=== PATIENT | female | born 1950 | race Asian ===

== ENCOUNTER 2018-01-23 17:08 | Inpatient (IN) | payer OTHER, MEDICARE ==
[~2018-01-23] VITALS: Ht 157.5 cm; Wt 41.7 kg
--- NOTE | 2018-01-23 17:15 | NUR ---
Pt placed in bed 8
[2018-01-23 17:17] VITALS: BP_SYST 162
--- NOTE | 2018-01-23 17:30 | NUR ---
ER at bedside examining patient.
--- NOTE | 2018-01-23 17:40 | NUR ---
PATIENT SITTING UP ON GURNEY. AA&Ox4. RESPIRATIONS EVEN AND UNLABORED. DENIES OF ANY CHEST PAIN, SOB, VOMITING, DIARRHEA, DIZZINESS, HEADACHE, AND FEVERS. PT WITH C/O INTERMITTENT, ACHING, MID ABDOMINAL PAIN x1 MONTH. PT'S UMBILICAL AREA NOTED WITH A SMALL, DRY, REDDENED MASS. ABDOMEN TENDER UPON PALPATION. PAIN = 4/10; TOLERABLE VERBALIZED. NO OBJECTIVE S/SX OF PAIN OBSERVED. REST AND RELAXATION ENCOURAGED. WILL CONTINUE TO MONITOR.
[2018-01-23 17:47] LABS: BILIRUBIN,URINE NEGATIVE (NEGATIVE); BLOOD, URINE NEGATIVE (NEGATIVE); CLARITY/URINE CLEAR (CLEAR); COLOR,URINE YELLOW (YELLOW); GLUCOSE,URINE NEGATIVE (NEGATIVE); KETONES,URINE 1+ (NEGATIVE); LEUKOCYTE ESTERASE ,URINE NEGATIVE (NEGATIVE); NITRITE, URINE NEGATIVE (NEGATIVE); PROTEIN URINE 1+ (NEGATIVE); UROBILINOGEN,URINE 0.2 (0.2-1.0)
--- NOTE | 2018-01-23 17:50 | NUR ---
Consent for CT w/ contrast obtained from pt.
[2018-01-23 17:56] LABS: BACTERIA,URINE FEW /HPF (None Seen); RBC,URINE 0-3 /HPF (0-3); WBC,URINE 0-3 /HPF (0-3)
[2018-01-23 17:57] LABS: CALCIUM OXALATE CRYSTALS,UR 0-10 /HPF (None Seen); MUCUS,URINE None Seen /LPF (None Seen); YEAST,URINE None Seen /HPF (None Seen)
[2018-01-23 18:00] LABS: BASOPHILS # (AUTO) 0.1 K/uL (0.0-0.2); BASOPHILS % (AUTO) 0.7 % (0.0-2.0); MEAN CORPUSCULAR HEMOGLOBIN 29 pg (27-31); MEAN CORPUSCULAR HGB CONC 32 % (32-36); MONOCYTES # (AUTO) 0.3 K/uL (0.0-1.0); NEUTROPHILS % (AUTO) 84.9 % (40.0-70.0)
[2018-01-23 18:02] LABS: EOSINOPHILS % (AUTO) 0.4 % (0.0-4.0); HEMATOCRIT 41.5 % (36-48); HEMOGLOBIN 13.1 g/dL (12.0-16.0); LYMPHOCYTES # (AUTO) 0.8 K/uL (1.0-5.5); LYMPHOCYTES % (AUTO) 10.5 % (20.5-51.5); MEAN CORPUSCULAR VOLUME 92 fL (79.0-98.0); MONOCYTES % (AUTO) 3.5 % (1.7-9.3); NEUTROPHILS # (AUTO) 6.9 K/uL (1.8-7.7); PLATELET COUNT (AUTO) 229 K/uL (130-430); RED BLOOD CELL COUNT(AUTO) 4.51 MIL/uL (4.2-6.2); RED CELL DISTRIBUTION WIDTH 11.8 % (9.0-15.0); WHITE BLOOD COUNT (AUTO) 8.1 K/uL (4.8-10.8)
[2018-01-23] MEDS ORDERED: IOHEXOL 100 ML IV ONE (18:06)
--- NOTE | 2018-01-23 18:07 | NUR ---
Patient transported to radiology via GURNEY, IN GOOD CONDITION,accompanied by RADIOLOGY STAFF.
[2018-01-23 18:09] LABS: CALCIUM 11.4 mg/dL (8.4-11.0); CREATININE 0.63 mg/dL (0.55-1.30); POTASSIUM 4.1 mmol/L (3.5-5.1)
[2018-01-23 18:13] LABS: ALBUMIN 4.1 g/dL (3.4-4.8); TOTAL BILIRUBIN 0.5 mg/dL (0.0-1.0)
--- NOTE | 2018-01-23 18:21 | NUR ---
Returned from radiology, VIA [facility]. PT IN GOOD CONDITION. AWAITING LAB RESULTS.
[2018-01-23] MEDS ORDERED: ALEN70TA3 PO (18:42)
[2018-01-23] MEDS ORDERED: METO25TA3 PO (18:42)
[2018-01-23] MEDS ORDERED: LISI1TAB11 PO (18:42)
[2018-01-23] MEDS ORDERED: CALC-823 PO (18:48)
[2018-01-23] MEDS ORDERED: MULT-1159 PO (18:48)
[2018-01-23] MEDS ORDERED: CHOL200075 PO (18:53)
[2018-01-23] MEDS ORDERED: ONDANSETRON HCL 4 MG/2 ML VIAL IVP PRN (19:00)
[2018-01-23] MEDS ORDERED: MORPHINE 4 MG/ML INJ. SYRINGE IVP PRN (19:00)
--- NOTE | 2018-01-23 19:00 | NUR ---
Patient will be admitted to care of DR. WOOD. Admitted to MED-SURG unit. Will go to room 101A. Belongings list completed. Summary report printed. Report will be given at bedside. Addendum: 01/23/18 at 1920 by SDEDOJ PATIENT IN GOOD CONDITION. PAIN = 5/10; TOLERABLE VERBALIZED.
--- NOTE | 2018-01-23 19:15 | NUR ---
Admission Note Received patient from ER with diagnosis of Abdominal Pain. Initial Plan of Care discussed-patient verbalized understanding. Patient's at bedside. Oriented to room, call light, pain management and safety.
[2018-01-23 19:33] VITALS: BP_SYST 162
[2018-01-23] MEDS: NACL 0.9% 1,000 ML IV SCH (20:41)
--- NOTE | 2018-01-23 21:05 | NUR ---
CT ABDOMEN TRIPLE PHASE Per radiology dept Dr. Marsh ordered CT abdomen triple phase with contrast but patient already given contrast in ER and cannot give any more for tonight. Procedure have to do it tomorrow. Will notify Dr. Marsh.
--- NOTE | 2018-01-23 21:30 | NUR ---
ROUND Patient resting in the bed with eyes closed. No acute distress. IV intact to RAC, no redness, no swelling, on NS at 100ml/hr, infusing well. Safety measure maintained. Bed locked in low position, side rails up, bed alarm on. Call light within reached. Continue to monitor.
--- NOTE | 2018-01-23 22:48 | NUR ---
paged paged doctor Adonis Marsh
--- NOTE | 2018-01-23 23:20 | NUR ---
2ND PAGED PAGED NINA JOHNSON FOR ORDERS.
--- NOTE | 2018-01-24 00:27 | NUR ---
Consultation called Reason for consultation: Abdominal Pain/Abdominal Mass Was consult called: Y Person who was notified: Nat Consulting Physician: Dr. Ge Sales Advisory Manager Ordering Physician: Dr. Marsh
[2018-01-24 00:34] VITALS: BP_SYST 145
--- NOTE | 2018-01-24 01:00 | NUR ---
ROUND Patient resting in the bed with eyes closed. No acute distress. Respiration even and unlabored. IV intact to RAC, no redness, no swelling, on NS at 100ml/hr, infusing well. Safety measure maintained. Call light within reached. Bed locked in low position, side rails up, bed alarm on. Continue to monitor.
--- NOTE | 2018-01-24 02:55 | NUR ---
ROUND Patient resting in the bed with eyes closed. No acute distress. Respiration even and unlabored. IV intact to RAC, no redness, no swelling, on NS at 100ml/hr, infusing well. Safety measure maintained. Bed locked in low position, side rails up, bed alarm on. Call light within reached. Continue to monitor.
--- NOTE | 2018-01-24 04:35 | NUR ---
ROUND Patient resting in the bed with eyes closed. No acute distress. IV intact to RAC, no redness, no swelling, on NS at 100ml/hr, infusing well. Safety measure maintained. Call light within reached. Bed locked in low position, side rails up, bed alarm on. Continue to monitor.
[2018-01-24] MEDS: NACL 0.9% 1,000 ML IV SCH ×3 (06:18→18:02)
--- NOTE | 2018-01-24 06:35 | NUR ---
CLOSING NOTE Patient resting in the bed comfortable. No acute distress. Respiration even and unlabored. IV intact to RAC, no redness, no swelling, on NS at 100ml/hr, infusing well. Assisted to bathroom as needed. All needs met. Hourly rounding during shift. Safety measure maintained. Call light within reached. Bed locked in low position, side rails up, bed alarm on. Will endorse to morning shift nurse.
--- NOTE | 2018-01-24 07:25 | NUR ---
INITIAL NOTE RECEIVED PATIENT FROM INFORMATION ASSURANCE ANALYST NURSE, PATIENT IN STABLE CONDITION, NO SIGNS OF DISTRESS NOTED, BREATHING IS EVEN AND UNLABORED, PATIENT HAS IV IN RIGHT FOREARM WITH IV FLUIDS RUNNING, NO SIGNS OF INFILTRATION NOTED AT THIS TIME, INSTRUCTED PATIENT TO USE CALL GUILLAUME IF ASSISTANCE IS NEEDED, PATIENT VERBALIZED UNDERSTANDING, CALL GUILLAUME WITHIN REACH, BED IN LOWEST POSITION, SIDE RAILS UP, WILL CONTINUE TO MONITOR.
[2018-01-24 07:30] VITALS: BP_SYST 157
[2018-01-24] MEDS ORDERED: ALENDRONATE SODIUM 70 MG TABLET (FOSAMAX) PO SCH (08:00)
--- NOTE | 2018-01-24 08:41 | NUR ---
PATIENT OFF UNIT FOR GI PROCEDURE PATIENT IN STABLE CONDITION
[2018-01-24] MEDS ORDERED: MEPERIDINE HCL/PF 100 MG/ML AMP ONE (08:55)
[2018-01-24] MEDS ORDERED: MIDAZOLAM HCL 5 MG/5 ML VIAL ONE (08:55)
[2018-01-24] MEDS ORDERED: SIMETHICONE 40 MG/0.6 ML ML ONE (08:56)
--- NOTE | 2018-01-24 09:52 | NUR ---
Client back on unit from procedure Client in stable condition, egd completed dx gastritis
[2018-01-24] MEDS: PANTOPRAZOLE SODIUM 40 MG/VIAL (PROTONIX) IVP SCH (10:16)
[2018-01-24] MEDS: CALCIUM CARBONATE/VITAMIN D3 1 TAB TABLET PO SCH (10:16)
[2018-01-24] MEDS: METOPROLOL SUCCINATE 25 MG TAB.SR.24H (TOPROL XL) PO SCH (10:17)
--- NOTE | 2018-01-24 10:27 | NUR ---
Medications patient given morning medications, medications given at this time due to patient being npo for procedure, no other needs at this time, call san within reach, bed in lowest position, fall precautions in place, will continue to monitor.
--- NOTE | 2018-01-24 12:24 | NUR ---
RN ROUNDS PATIENT CURRENTLY EATING LUNCH, NO SIGNS OF DISTRESS NOTED, BREATHING EVEN AND UNLABORED, CALL GUILLAUME WITHIN REACH, WILL CONTINUE TO MONITOR.
[2018-01-24] MEDS ORDERED: IOHEXOL 100 ML IV ONE (13:16)
--- NOTE | 2018-01-24 14:32 | NUR ---
RN ROUNDS PATIENT IN STABLE CONDITION, NO COMPLAINTS OF PAIN OR DISCOMFORT AT THIS TIME, CALL GUILLAUME WITHIN REACH, WILL CONTINUE TO MONITOR.
[2018-01-24 14:53] LABS: CALCIUM 9.4 mg/dL (8.4-11.0); CREATININE 0.68 mg/dL (0.55-1.30); POTASSIUM 3.8 mmol/L (3.5-5.1)
[2018-01-24 14:54] LABS: EOSINOPHILS % (AUTO) 0.5 % (0.0-4.0); HEMATOCRIT 41.3 % (36-48); HEMOGLOBIN 13.3 g/dL (12.0-16.0); LYMPHOCYTES # (AUTO) 0.8 K/uL (1.0-5.5); LYMPHOCYTES % (AUTO) 11.3 % (20.5-51.5); MEAN CORPUSCULAR HEMOGLOBIN 30 pg (27-31); MEAN CORPUSCULAR HGB CONC 32 % (32-36); MEAN CORPUSCULAR VOLUME 92 fL (79.0-98.0); MONOCYTES # (AUTO) 0.4 K/uL (0.0-1.0); MONOCYTES % (AUTO) 5.2 % (1.7-9.3); NEUTROPHILS # (AUTO) 5.7 K/uL (1.8-7.7); PLATELET COUNT (AUTO) 225 K/uL (130-430); RED BLOOD CELL COUNT(AUTO) 4.47 MIL/uL (4.2-6.2); RED CELL DISTRIBUTION WIDTH 11.5 % (9.0-15.0); WHITE BLOOD COUNT (AUTO) 6.9 K/uL (4.8-10.8)
[2018-01-24 14:58] LABS: ALBUMIN 3.3 g/dL (3.4-4.8); TOTAL BILIRUBIN 0.6 mg/dL (0.0-1.0)
[2018-01-24 16:28] VITALS: BP_SYST 156
--- NOTE | 2018-01-24 16:30 | NUR ---
RN ROUNDS PATIENT IN STABLE CONDITION, NO SIGNS OF DISTRESS NOTED AT THIS TIME, PATIENT IN STABLE CONDITION. WILL CONTINUE TO MONITOR.
--- NOTE | 2018-01-24 18:47 | NUR ---
CLOSING NOTE WILL ENDORSE PATIENT TO CARRIAGE DOGGER NURSE, ALL NEEDS MET, NO COMPLAINTS OF PAIN AT THIS TIME, CALL GUILLAUME WITHIN REACH, BED IN LOWEST POSITION, SIDE RAILS UP. FALL PRECAUTIONS IN PLACE.
--- NOTE | 2018-01-24 19:47 | NUR ---
OPENING NOTES Pt and endorsement received from morning shift nurse. Pt is AAOx4, lying in bed. No complains of pain, nausea and vomiting. Pt is on IVF NS at 100ml/hr on right AC G20. No signs of acute distress noted. Encouraged to use call light when needed. Pt refused to turn bed alarm on and educated on safety precautions, pt states that she ambulates okay and will call the nurse when she needs anything. Bed at its lowest level. Will continue to monitor.
[2018-01-24 21:17] VITALS: BP_SYST 135
--- NOTE | 2018-01-24 23:47 | NUR ---
RESTING Pt is resting in bed with both eyes closed. With visible chest rise and fall noted. No signs of acute distress or SOB noted. Call light with pt and bed at its lowest level. Will continue to monitor.
[2018-01-25] MEDS: NACL 0.9% 1,000 ML IV SCH (02:12)
[2018-01-25] MEDS: ACETAMINOPHEN 325 MG TABLET PO PRN (02:22)
--- NOTE | 2018-01-25 02:22 | NUR ---
PAIN MED/TYLENOL 650MG GIVEN Pt complained of abdominal pain with a scale of 3/10. Encouraged deep breathing exercises and position of comfort. Tylenol 650mg PO given as ordered. Pt asked for snacks, crackers and sandwich was given. Safety precautions in place with 2 side rails up, bed at its lowest and call light with pt.Will continue to monitor.
--- NOTE | 2018-01-25 06:50 | NUR ---
CLOSING NOTES Pt is resting in bed with both eyes closed. With visible chest rise and fall noted. No signs of acute distress noted. Call light with pt and bed at its lowest level. All needs attended throughout the shift. Will endorse to day shift nurse.
[2018-01-25 07:11] LABS: CALCIUM 8.8 mg/dL (8.4-11.0); CREATININE 0.63 mg/dL (0.55-1.30); POTASSIUM 3.2 mmol/L (3.5-5.1)
[2018-01-25 07:20] LABS: ALBUMIN 2.8 g/dL (3.4-4.8); TOTAL BILIRUBIN 0.4 mg/dL (0.0-1.0)
--- NOTE | 2018-01-25 07:30 | NUR ---
OPENING NOTE At initial assessment, patient is awake, alert and oriented x4. Denies any pain at this time. Breathing even and unlabored, patient on room air. IV site on the RAC 20G patent and intact, NS infusing at 100 ml/hr. Safety and fall precautions in place, bed is in lowest position and locked, bed alarm on, side rails up x2, call light within reach, will continue to monitor.
[2018-01-25 08:15] VITALS: BP_SYST 166
[2018-01-25] MEDS: PANTOPRAZOLE SODIUM 40 MG/VIAL (PROTONIX) IVP SCH (08:35)
[2018-01-25] MEDS: METOPROLOL SUCCINATE 25 MG TAB.SR.24H (TOPROL XL) PO SCH (08:35)
[2018-01-25] MEDS: CALCIUM CARBONATE/VITAMIN D3 1 TAB TABLET PO SCH (08:35)
[2018-01-25] MEDS ORDERED: POTASSIUM CHLORIDE 10 MEQ TAB.PRT.SR PO ONE (10:00)
--- NOTE | 2018-01-25 10:16 | NUR ---
CONSULTATION PAGED/CALLED Reason for Consultation: [] LIVER MASS Person Who was Notified: [] Consulting Physician: [] DR NDIAYE FIXER SUPERVISOR FOR DR MCNALLY Disease Education Specialist Specialty: [] ONCO/SAMMIE Ordering Physician: [] DR Adonis WOOD Addendum: 01/25/18 at 1025 by Sintia Anderson [place]/ PERSON WHO WAS NOTIFIED: SPOKE TO SAIRA
[2018-01-25] MEDS ORDERED: IOHEXOL 100 ML IV ONE (11:50)
[2018-01-25 12:01] LABS: INR 1.1 (0.8-1.2); PROTHROMBIN TIME 11.5 SECS (9.5-12.5)
[2018-01-25 12:12] LABS: CEA 1.2 ng/mL (0.0-4.7)
--- NOTE | 2018-01-25 12:50 | NUR ---
RN ROUNDS Patient is awake, alert and oriented x4, denies any pain at this time. No respiratory distress noted. AM meds tolerated well. Safety and fall precautions in place. Will continue to monitor.
--- NOTE | 2018-01-25 13:40 | NUR ---
PAGED/SPOKE TO MD Dr. Butler, on-call MD for Dr. Randhawa, paged regarding the CT liver biopsy. Dr. Butler called back and informed him regarding the CT liver biopsy to be done on Saturday, and Dr. Butler is okay with it.
--- NOTE | 2018-01-25 14:38 | NUR ---
Dietitian Recommendations * Recommend regular, soft diet w/ Ensure Enlive BID (oral supplement provides an additional 700 kcal/day and 40 gm protein/day) LP, RD Please refer to Nutrition Assessment for details.
--- NOTE | 2018-01-25 14:43 | NUR ---
RN ROUNDS Patient is resting with eyes closed, no c/o pain at this time. Breathing even and unlabored. Safety and fall precautions in place, call light within reach.
[2018-01-25 15:32] VITALS: BP_SYST 161
--- NOTE | 2018-01-25 16:55 | NUR ---
RN ROUNDS Patient is awake, stable, denies any pain at this time. Safety and fall precautions in place. Call light within reach.
--- NOTE | 2018-01-25 19:00 | NUR ---
CLOSING NOTE Patient is awake, alert and oriented x4, denies any pain at this time. No respiratory distress. IV site patent and intact, no s/s of infection or infiltration. Safety and fall precautions in place, bed is in lowest position and locked, side rails up x2, call light within reach. All needs met and anticipated throughout the shift, will endorse plan of care.
--- NOTE | 2018-01-25 19:27 | NUR ---
OPENING NOTES: Pt and endorsement received from day shift nurse. Pt is AAOx4, lying in bed while reading. No complains of pain and no signs of acute distress or SOB noted. Encouraged to use call light when needed. Pt refused bed alarm and was educated on safety precautions. Call light with pt and bed at its lowest level. Will continue to monitor.
[2018-01-25 21:34] VITALS: BP_SYST 138
--- NOTE | 2018-01-25 23:00 | NUR ---
RESTING Pt is resting in bed with both eyes closed. With visible chest rise and fall noted. No signs of any acute distress or complains of pain at this time. Call light with pt, 3 side rails up and bed at its lowest level. Will continue to monitor.
[2018-01-26 00:19] VITALS: BP_SYST 144
--- NOTE | 2018-01-26 02:23 | NUR ---
RESTING Pt is resting in bed with both eyes closed. With visible chest rise and fall noted. No signs of any acute distress or SOB. Call light with pt, 3 side rails up and bed at its lowest level. Will continue to monitor.
--- NOTE | 2018-01-26 06:41 | NUR ---
CLOSING Pt is resting in bed with both eyes closed. With visible chest rise and fall with non labored breathing noted. No complains of pain and no signs of acute distress noted. All needs attended throughout the shift. Safety precautions in place with bed at its lowest level and 2 side rails up. Call light with pt. Will endorse to days shift nurse.
--- NOTE | 2018-01-26 07:30 | NUR ---
OPENING NOTE Patient is awake, alert and oriented x4, denies any pain at this time. Breathing even and unlabored, patient on room air. IV site on the RAC 20G patent and intact, saline locked. Safety and fall precautions in place, bed in lowest position and locked, bed alarm on, side rails up x2, call light within reach, will continue to monitor.
[2018-01-26 08:17] VITALS: BP_SYST 165
[2018-01-26] MEDS: CALCIUM CARBONATE/VITAMIN D3 1 TAB TABLET PO SCH (08:20)
[2018-01-26] MEDS: PANTOPRAZOLE SODIUM 40 MG/VIAL (PROTONIX) IVP SCH (08:21)
[2018-01-26] MEDS: METOPROLOL SUCCINATE 25 MG TAB.SR.24H (TOPROL XL) PO SCH (08:21)
--- NOTE | 2018-01-26 12:12 | NUR ---
RN ROUNDS Patient is awake, stable, denies any pain or discomfort. No needs at this time. Call light within reach, will continue to monitor.
[2018-01-26 12:16] VITALS: BP_SYST 132
[2018-01-26 16:02] VITALS: BP_SYST 146
--- NOTE | 2018-01-26 16:12 | NUR ---
RN ROUNDS Patient is awake, stable. Denies any pain at this time. Call light within reach, will continue to monitor.
--- NOTE | 2018-01-26 18:30 | NUR ---
CLOSING NOTE Patient is awake, in stable condition, denies any pain/discomfort at this time. Breathing even and unlabored. Denies any pain/discomfort at this time. IV site patent and intact, no s/s of infection. Safety and fall precautions in place, bed is in lowest position and locked, side rails up x2, call light within reach. All needs met and anticipated throughout the shift, will endorse plan of care.
--- NOTE | 2018-01-26 19:18 | NUR ---
OPENING NOTES Pt and endorsement received from day shift nurse. Pt is AAOx4, lying in bed. Denies any pain at this time. No signs of acute distress noted. Encouraged to use call light when needed. Pt refused bed alarm and was educated on safety precautions. Call light with pt and bed at its lowest level. Will continue to monitor.
[2018-01-26 21:14] VITALS: BP_SYST 146
[2018-01-27 00:22] VITALS: BP_SYST 154
--- NOTE | 2018-01-27 00:30 | NUR ---
RESTING Pt is resting in bed with both eyes closed. With visible chest rise and fall with unlabored breathing noted. No signs of any acute distress noted. Call light with pt and bed at its lowest level. Will continue to monitor.
--- NOTE | 2018-01-27 04:00 | NUR ---
RESTING Pt is resting in bed with both eyes closed. With visible chest rise and fall noted. No signs of any acute distress or SOB noted. Call light with pt and bed at its lowest level. Will continue to monitor.
--- NOTE | 2018-01-27 07:00 | NUR ---
CLOSING NOTES Pt is resting in bed with both eyes closed. With visible chest rise and fall with unlabored breathing noted. No complains of pain throughout the shift. All needs attended. Safety precautions maintained and call light with pt. Will endorse to day shift nurse.
[2018-01-27 08:00] VITALS: BP_SYST 162
--- NOTE | 2018-01-27 08:00 | NUR ---
Opening Note/refuse bed alarm received report from music supervisor RN, pt resting in bed, A&Ox4, respirations even and unlabored on room air, pt denies any pain, no acute distress noted, IV site clean, dry, and intact, pt educated on use of call light and asked to call for assistance, pt verbalized understanding, call light in reach, pt educated on use of bed alarm for pt safety, pt refusing bed alarm, bed in low and locked position, fall and aspiration precautions in place.
[2018-01-27] MEDS: METOPROLOL SUCCINATE 25 MG TAB.SR.24H (TOPROL XL) PO SCH (08:29)
[2018-01-27] MEDS: PANTOPRAZOLE SODIUM 40 MG/VIAL (PROTONIX) IVP SCH (08:30)
[2018-01-27] MEDS: CALCIUM CARBONATE/VITAMIN D3 1 TAB TABLET PO SCH (08:30)
--- NOTE | 2018-01-27 08:35 | NUR ---
Medication called radiology, okay for pt to have medication with small sip of water, pt educated on medication use and side effects, pt verbalized understanding, pt tolerated medication administration well, no acute distress noted, pt educated on use and side effects of os-jez, pt refusing os-jez, fall and aspiration precautions in place.
[2018-01-27] MEDS ORDERED: LIDOCAINE 1%, 20 ML MDV 20 ML ONE (09:24)
--- NOTE | 2018-01-27 09:30 | NUR ---
to CT pt stable, no acute distress noted, pt taken to CT via wheelchair.
--- NOTE | 2018-01-27 10:26 | NUR ---
back from CT pt back from CT, resting in bed, no acute distress noted, fall and aspiration precautions in place. Addendum: 01/27/18 at 1042 by Lili Savage RN add: band aid to medial upper abdomen, clean, dry, and intact, no bleeding noted, BP 151/90, HR 75, O2Sat 96%, temp 97.6, respirations 17.
--- NOTE | 2018-01-27 10:41 | NUR ---
Pain Management/Medication pt complaint of pain 9/10 to upper abdomen, pt educated on use and side effects of PRN morphine, pt verbalized understanding, tolerated medication administration well, no acute distress noted, fall and aspiration precautions in place.
[2018-01-27 11:08] VITALS: BP_SYST 136
[2018-01-27 11:17] LABS: HEPATITIS A AB, IgM Negative (Negative); HEPATITIS B CORE AB, IgM Negative (Negative); HEPATITIS B SURFACE AG Negative (Negative)
--- NOTE | 2018-01-27 11:45 | NUR ---
RN Rounds pt resting in bed, reports pain control is effective, no acute distress noted, fall and aspiration precautions in place.
--- NOTE | 2018-01-27 13:45 | NUR ---
Bathroom pt ambulated to bathroom, steady gait noted, no assistance required, pt voided x1, pt ambulated back to bed, no additional needs at this time, fall and aspiration precautions in place.
[2018-01-27] MEDS: ACETAMINOPHEN 325 MG TABLET PO PRN ×2 (15:47→21:25)
--- NOTE | 2018-01-27 15:48 | NUR ---
Pain Management/Medication pt complaint of pain 3/10 to abdomen, pt educated on use and side effects of PRN tylenol, pt verbalized understanding, tolerated medication administration well, no acute distress noted, fall and aspiration precautions in place.
[2018-01-27 16:47] VITALS: BP_SYST 148
--- NOTE | 2018-01-27 17:22 | NUR ---
RN Rounds pt sleeping in bed, respirations even and unlabored on room air, no acute distress noted, fall and aspiration precautions in place.
--- NOTE | 2018-01-27 19:25 | NUR ---
Closing Note pt resting in bed, A&Ox4, respirations even and unlabored on room air, pt reports pain is controlled at this time, band-aid to medial upper abdomen intact, no bleeding noted, no acute distress noted, pt educated on use of call light and asked to call for assistance, pt verbalized understanding, call light in reach, pt educated on use of bed alarm for pt safety, pt refusing bed alarm, bed in low and locked position, fall and aspiration precautions in place, care endorsed to Mayra RN.
--- NOTE | 2018-01-27 19:30 | NUR ---
Initial Notes Received handoff report from offgoing nurse at the bedside. Patient is awake and alert, resting comfortably in bed. No SOB, no acute distress, no complaints of pain at this time. Bed is locked, in the lowest position, 2x side rails up. Patient refuses bed alarm at this time. Call light is within reach. Explained plan of care to the patient. Patient verbalized understanding.
[2018-01-27 20:00] VITALS: BP_SYST 137
--- NOTE | 2018-01-27 21:25 | NUR ---
Patient is complaining of mild abdominal pain. Provided Tylenol PRN per MD order, see eMAR for details.
--- NOTE | 2018-01-27 22:32 | NUR ---
Patient is resting comfortably in bed with eyes closed. No SOB, no acute distress, no signs of pain or facial grimacing noted. Breathing is even and unlabored with visible chest rise and fall noted. Bed is locked, in the lowest position, 2x side rails up. Call light is within reach.
[2018-01-28 00:28] VITALS: BP_SYST 137
--- NOTE | 2018-01-28 00:32 | NUR ---
Patient is resting comfortably in bed with eyes closed. No SOB, no acute distress, no signs of pain or facial grimacing at this time. Breathing is even and unlabored with visible chest rise and fall noted. Bed is locked, in the lowest position, 2x side rails up. Call light is within reach.
--- NOTE | 2018-01-28 03:38 | NUR ---
Patient is resting comfortably in bed. No SOB, no acute distress, no signs of pain or facial grimacing at this time. Breathing is even and unlabored. Call light is within reach.
--- NOTE | 2018-01-28 05:47 | NUR ---
Patient is resting comfortably in bed, awake and alert. No SOB, no acute distress, no complaints of pain at this time. Bed is locked, in the lowest position, 2x side rails up. Call light is within reach. Encouraged patient to call. Provided nourishment per patient request, apple juice and orange juice.
--- NOTE | 2018-01-28 07:15 | NUR ---
Closing Notes Patient is resting comfortably in bed, awake and alert. No SOB, no acute distress, no complaints of pain at this time. IV site is intact, dressing clean and dry, saline locked. Bed is locked, placed in the lowest position, 2x side rails up. Patient refuses bed alarm at this time. Call light is within reach. Fall and safety precautions maintained. All needs have been met during this shift. Handoff report given to oncoming dayshift nurse at the bedside.
[2018-01-28 08:00] VITALS: BP_SYST 151
--- NOTE | 2018-01-28 08:00 | NUR ---
Opening Note/refuse bed alarm received report from hourly shift manager RN, pt resting in bed, A&Ox4, respirations even and unlabored on room air, pt reports pain is controlled, no acute distress noted, IV site clean, dry, and intact, pt educated on use of call light and asked to call for assistance, pt verbalized understanding, call light in reach, pt educted on use of bed alarm for pt safety, pt refusing bed alarm, bed in low and locked position, fall and aspiration precautions in place.
[2018-01-28] MEDS: PANTOPRAZOLE SODIUM 40 MG/VIAL (PROTONIX) IVP SCH (08:07)
[2018-01-28] MEDS: CALCIUM CARBONATE/VITAMIN D3 1 TAB TABLET PO SCH (08:07)
[2018-01-28] MEDS: METOPROLOL SUCCINATE 25 MG TAB.SR.24H (TOPROL XL) PO SCH (08:07)
--- NOTE | 2018-01-28 08:13 | NUR ---
Medication pt educated on medication use and side effects, pt verbalized understanding, tolerated medication administration well, no acute distress noted, fall and aspiration precautions in place.
[2018-01-28] MEDS ORDERED: PRO40 PO (09:16)
[2018-01-28 09:20] VITALS: BP_SYST 151
--- NOTE | 2018-01-28 09:30 | NUR ---
Ambulating pt seen ambulating in cook, steady gait noted, pt tolerating well.
--- NOTE | 2018-01-28 10:50 | NUR ---
Discharge pt provided with discharge packet and instructions, written prescription for protonix provided, pt instructed to follow up with Dr. Randhawa in one week, pt verbalized understanding, IV catheter removed, catheter intact, no bleeding, hospital ID band removed, pt stable, no acute distress noted, no bleeding noted from liver biopsy site, pts accompanying for discharge, all belongings sent with pt, pt taken to parking lot via wheelchair.
[2018-01-28 14:54] LABS: CARBOHYDRATE AG 19-9 49 U/mL (0-35)
--- NOTE | 2018-01-31 13:48 | NUR ---
Discharge Follow Up Phone Call HAMMER HEATER phoned patient, , and left a voicemail on 01/30/18. HAMMER HEATER phoned and spoke with patient today. Patient stated she was doing okay. Her pain medicine is managing her pain. She filled her protonix prescription. She has a follow up appointment scheduled with oncologist, Dr Randhawa on 02/07/18 (rescheduled from 01/31/18). No questions or concerns.
== END 2018-01-28 10:55 | disposition home or self-care (01) | DRG 436 ==
LOC: SED 17:08 → SMU 18:49
PROVIDERS: ADMIT Internal Medicine; ATTEND Internal Medicine
PROC: 0DB68ZX Excision of Stomach, Via Natural or Artificial Opening Endoscopic, Diagnostic (ICD-10-PCS; principal; 2018-01-24 09:45)
PROC: 0FB23ZX Excision of Left Lobe Liver, Percutaneous Approach, Diagnostic (ICD-10-PCS; 2018-01-27)
DX: C78.7 Secondary malignant neoplasm of liver and intrahepatic bile duct (principal); E46 Unspecified protein-calorie malnutrition; Z68.1 Body mass index [BMI] 19.9 or less, adult; K76.9 Liver disease, unspecified; K29.70 Gastritis, unspecified, without bleeding; I10 Essential (primary) hypertension; R16.0 Hepatomegaly, not elsewhere classified; M19.90 Unspecified osteoarthritis, unspecified site; M81.0 Age-related osteoporosis without current pathological fracture; Z79.899 Other long term (current) drug therapy
CPT/HCPCS: 36415; 43239; 47000; 71260-TC; 74170-TC; 80053; 80074; 81000-TC; 82105; 82378; 83690-TC; 85025; 85610-TC; 85730-TC; 86301; 87081; 88305; 88307; 88312; 88313; 88341; 88342; 99285; C9113; J2001; J2175; J2250; J2270; J7030; Q9967

== ENCOUNTER 2018-04-07 09:40 | Inpatient (IN) | payer OTHER, MEDICARE ==
[~2018-04-07] VITALS: Ht 157.5 cm; Wt 39.0 kg
[~2018-04-07 09:40] MED LIST: ALEN70TA3 PO; CALC-823 PO; CHOL200075 PO; LISI1TAB11 PO; METO25TA3 PO; MULT-1159 PO; PRO40 PO
[2018-04-07 09:53] VITALS: BP_SYST 156
[2018-04-07] MEDS ORDERED: NACL 0.9% 1,000 ML IV ONE (10:19)
[2018-04-07] MEDS ORDERED: ONDANSETRON HCL 4 MG/2 ML VIAL IVP ONE (10:45)
[2018-04-07 11:25] LABS: BASOPHILS % (AUTO) 0.3 % (0.0-2.0); EOSINOPHILS % (AUTO) 0.1 % (0.0-4.0); HEMATOCRIT 40.8 % (36-48); HEMOGLOBIN 13.4 g/dL (12.0-16.0); LYMPHOCYTES # (AUTO) 0.6 K/uL (1.0-5.5); LYMPHOCYTES % (AUTO) 11.4 % (20.5-51.5); MEAN CORPUSCULAR HEMOGLOBIN 29 pg (27-31); MEAN CORPUSCULAR HGB CONC 33 % (32-36); MEAN CORPUSCULAR VOLUME 87 fL (79.0-98.0); MONOCYTES # (AUTO) 0.2 K/uL (0.0-1.0); MONOCYTES % (AUTO) 2.9 % (1.7-9.3); NEUTROPHILS # (AUTO) 4.8 K/uL (1.8-7.7); NEUTROPHILS % (AUTO) 85.3 % (40.0-70.0); PLATELET COUNT (AUTO) 234 K/uL (130-430); RED BLOOD CELL COUNT(AUTO) 4.68 MIL/uL (4.2-6.2); RED CELL DISTRIBUTION WIDTH 12.8 % (9.0-15.0); WHITE BLOOD COUNT (AUTO) 5.6 K/uL (4.8-10.8)
[2018-04-07 11:43] LABS: CALCIUM 10.2 mg/dL (8.4-11.0); CREATININE 0.64 mg/dL (0.55-1.30); POTASSIUM 4.2 mmol/L (3.5-5.1)
[2018-04-07 11:48] LABS: INR 1.1 (0.8-1.2)
[2018-04-07 11:49] LABS: ALBUMIN 2.8 g/dL (3.4-4.8); TOTAL BILIRUBIN 0.5 mg/dL (0.0-1.0)
[2018-04-07 14:31] VITALS: BP_SYST 146
[2018-04-07] MEDS: D5NS 1,000 ML IV SCH (16:29)
[2018-04-07 20:00] VITALS: BP_SYST 135
[2018-04-08] VITALS: BP_SYST 132
[2018-04-08 01:01] LABS: BILIRUBIN,URINE 2+ (NEGATIVE); BLOOD, URINE NEGATIVE (NEGATIVE); CLARITY/URINE CLEAR (CLEAR); COLOR,URINE YELLOW (YELLOW); GLUCOSE,URINE NEGATIVE (NEGATIVE); KETONES,URINE 3+ (NEGATIVE); LEUKOCYTE ESTERASE ,URINE NEGATIVE (NEGATIVE); NITRITE, URINE NEGATIVE (NEGATIVE); PROTEIN URINE 2+ (NEGATIVE)
[2018-04-08 01:42] LABS: RBC,URINE 0-3 /HPF (0-3); WBC,URINE 0-3 /HPF (0-3)
[2018-04-08 01:43] LABS: BACTERIA,URINE MODERATE /HPF (None Seen); MUCUS,URINE 4+ /LPF (None Seen); YEAST,URINE None Seen /HPF (None Seen)
[2018-04-08] MEDS: D5NS 1,000 ML IV SCH ×2 (05:38→20:05)
[2018-04-08] MEDS: ONDANSETRON HCL 4 MG/2 ML VIAL IVP PRN ×3 (05:43→18:25)
[2018-04-08 08:00] VITALS: BP_SYST 129
[2018-04-08] MEDS: METOPROLOL SUCCINATE 25 MG TAB.SR.24H (TOPROL XL) PO SCH (08:56)
[2018-04-08] MEDS: PANTOPRAZOLE SODIUM 40 MG TAB PO SCH (08:56)
[2018-04-08] MEDS ORDERED: metroNIDAZOLE 500 mg/NS 100 ML IV ONE (10:00)
[2018-04-08] MEDS: LEVOFLOXACIN 500 MG/D5W 100 ML IV SCH (12:04)
[2018-04-08 16:44] VITALS: BP_SYST 128
[2018-04-08 20:00] VITALS: BP_SYST 113
[2018-04-08] MEDS: metroNIDAZOLE 500 mg/NS 100 ML IV SCH (21:06)
[2018-04-08] MEDS: METOCLOPRAMIDE HCL 10 MG/2 ML VIAL IVP PRN (21:11)
[2018-04-09] VITALS: BP_SYST 119
[2018-04-09] MEDS: metroNIDAZOLE 500 mg/NS 100 ML IV SCH ×3 (05:25→21:27)
[2018-04-09] MEDS: ONDANSETRON HCL 4 MG/2 ML VIAL IVP PRN (05:27)
[2018-04-09 08:00] VITALS: BP_SYST 119
[2018-04-09] MEDS: PANTOPRAZOLE SODIUM 40 MG TAB PO SCH (09:18)
[2018-04-09] MEDS: ONDANSETRON 4 MG ODT TAB PO SCH ×3 (09:18→21:27)
[2018-04-09] MEDS: METOPROLOL SUCCINATE 25 MG TAB.SR.24H (TOPROL XL) PO SCH (09:18)
[2018-04-09] MEDS: LEVOFLOXACIN 500 MG/D5W 100 ML IV SCH (09:18)
[2018-04-09] MEDS: DECADRON 4 MG TABLET PO SCH ×2 (09:18→17:01)
[2018-04-09] MEDS ORDERED: DECADRON 4 MG TABLET ONE (09:21)
[2018-04-09 11:59] VITALS: BP_SYST 117
[2018-04-09] MEDS: D5NS 1,000 ML IV SCH (13:21)
[2018-04-09 16:01] VITALS: BP_SYST 116
[2018-04-09 21:30] VITALS: BP_SYST 116
[2018-04-09 23:36] VITALS: BP_SYST 101
[2018-04-10] MEDS: D5NS 1,000 ML IV SCH ×2 (04:54→22:02)
[2018-04-10] MEDS: METOCLOPRAMIDE HCL 10 MG/2 ML VIAL IVP PRN (04:54)
[2018-04-10] MEDS: metroNIDAZOLE 500 mg/NS 100 ML IV SCH ×3 (05:42→22:02)
[2018-04-10 08:25] VITALS: BP_SYST 111
[2018-04-10] MEDS: PANTOPRAZOLE SODIUM 40 MG TAB PO SCH (10:18)
[2018-04-10] MEDS: METOPROLOL SUCCINATE 25 MG TAB.SR.24H (TOPROL XL) PO SCH (10:18)
[2018-04-10] MEDS: ONDANSETRON 4 MG ODT TAB PO SCH ×3 (10:19→22:02)
[2018-04-10] MEDS: DECADRON 4 MG TABLET PO SCH ×2 (10:19→18:57)
[2018-04-10] MEDS: LEVOFLOXACIN 500 MG/D5W 100 ML IV SCH (10:25)
[2018-04-10 12:48] VITALS: BP_SYST 99
[2018-04-10 16:02] VITALS: BP_SYST 102
[2018-04-10 20:00] VITALS: BP_SYST 117
[2018-04-11] MEDS: D5NS 1,000 ML IV SCH (03:39)
[2018-04-11] MEDS: metroNIDAZOLE 500 mg/NS 100 ML IV SCH ×2 (05:22→14:00)
[2018-04-11] MEDS: LEVOFLOXACIN 500 MG/D5W 100 ML IV SCH (08:27)
[2018-04-11] MEDS: DECADRON 4 MG TABLET PO SCH ×2 (08:28→17:36)
[2018-04-11] MEDS: PANTOPRAZOLE SODIUM 40 MG TAB PO SCH (08:28)
[2018-04-11] MEDS: METOPROLOL SUCCINATE 25 MG TAB.SR.24H (TOPROL XL) PO SCH (08:31)
[2018-04-11] MEDS: ONDANSETRON 4 MG ODT TAB PO SCH ×2 (08:36→17:36)
[2018-04-11 08:41] VITALS: BP_SYST 100
[2018-04-11 10:37] LABS: HEMATOCRIT 36.9 % (36-48); HEMOGLOBIN 12.3 g/dL (12.0-16.0); LYMPHOCYTES % (AUTO) 8.6 % (20.5-51.5); MEAN CORPUSCULAR HEMOGLOBIN 30 pg (27-31); MEAN CORPUSCULAR HGB CONC 34 % (32-36); MEAN CORPUSCULAR VOLUME 89 fL (79.0-98.0); MONOCYTES % (AUTO) 7.7 % (1.7-9.3); NEUTROPHILS % (AUTO) 83.2 % (40.0-70.0); PLATELET COUNT (AUTO) 187 K/uL (130-430); RED BLOOD CELL COUNT(AUTO) 4.15 MIL/uL (4.2-6.2); RED CELL DISTRIBUTION WIDTH 13.9 % (9.0-15.0); WHITE BLOOD COUNT (AUTO) 7.9 K/uL (4.8-10.8)
[2018-04-11 10:38] LABS: BASOPHILS % (AUTO) 0.4 % (0.0-2.0); EOSINOPHILS % (AUTO) 0.1 % (0.0-4.0); LYMPHOCYTES # (AUTO) 0.7 K/uL (1.0-5.5); MONOCYTES # (AUTO) 0.6 K/uL (0.0-1.0); NEUTROPHILS # (AUTO) 6.6 K/uL (1.8-7.7)
[2018-04-11 10:41] LABS: CALCIUM 8.5 mg/dL (8.4-11.0); CREATININE 0.6 mg/dL (0.55-1.30); POTASSIUM 3.5 mmol/L (3.5-5.1)
[2018-04-11 10:46] LABS: ALBUMIN 2.1 g/dL (3.4-4.8); TOTAL BILIRUBIN 0.3 mg/dL (0.0-1.0)
[2018-04-11 12:30] VITALS: BP_SYST 126
[2018-04-11 16:53] VITALS: BP_SYST 122
[2018-04-11] MEDS ORDERED: ONDA4TAB5 PO (17:43)
== END 2018-04-11 18:20 | disposition home or self-care (01) | DRG 391 ==
LOC: SED 09:40 → SMU 13:50
PROVIDERS: ADMIT Internal Medicine Hospice and Palliative Medicine; ATTEND Internal Medicine Hospice and Palliative Medicine
DX: R11.2 Nausea with vomiting, unspecified (principal); E43 Unspecified severe protein-calorie malnutrition; C78.7 Secondary malignant neoplasm of liver and intrahepatic bile duct; R18.8 Other ascites; C25.9 Malignant neoplasm of pancreas, unspecified; C24.9 Malignant neoplasm of biliary tract, unspecified; R19.7 Diarrhea, unspecified; M19.90 Unspecified osteoarthritis, unspecified site; M81.0 Age-related osteoporosis without current pathological fracture; I10 Essential (primary) hypertension; Z79.899 Other long term (current) drug therapy; Z92.21 Personal history of antineoplastic chemotherapy; T88.7XXA Unspecified adverse effect of drug or medicament, initial encounter
CPT/HCPCS: 36415; 71045; 80053; 81000-TC; 82550-TC; 83605; 83690-TC; 85025; 85610-TC; 85730-TC; 87040-TC; 87045-TC; 87046; 87230-TC; 93005; 96361; 96374; 99285; J1956; J2405; J2765; J3490; J7030; J7042; J8540; Q0162

== ENCOUNTER 2018-08-14 12:09 | Inpatient (IN) | payer OTHER, MEDICARE ==
[2018-08-14] VITALS (7 sets, daily range): BP systolic 102–137
[~2018-08-14] VITALS: Ht 154.9 cm; Wt 27.2 kg
[~2018-08-14 12:09] MED LIST changes: +ONDA4TAB5 PO
--- NOTE | 2018-08-14 12:09 | NUR ---
STAFF CALLED TO PTS CAR, PT CARRIED OUT OF CAR AND PLACED ON GURNEY, BROUGHT INTO ER AND ALL STAFF CALLED TO BEDSIDE, DR FLYNN AT BEDSIDE. RT CALLED TO BEDSIDE. TRIAGED PER FAMILYS INFORMATION, PT NON RESPONSIVE AT THIS TIME. REPORT GIVEN TO ANI
--- NOTE | 2018-08-14 12:09 | NUR ---
PER CHARGE NURSE, STATES SHE IS FULL CODE.
--- NOTE | 2018-08-14 12:10 | NUR ---
PATIENT HOOKED UP TO MONITOR.
--- NOTE | 2018-08-14 12:11 | NUR ---
Renea gaspar in [facility] - 08/14/18 at 1732 by MALLORY STARTED BAGGING PATIENT BY RT.
--- NOTE | 2018-08-14 12:11 | NUR ---
PATIENT BEING VENTALIATION ASSISSTED BY RT WITH AMBO BAG.
--- NOTE | 2018-08-14 12:12 | NUR ---
PATIENT NOT RESPONDING TO WHEN TALKED TO BUT IS AWAKE AND MOVING EXTREMITIES.
--- NOTE | 2018-08-14 12:14 | NUR ---
IO PLACED ON LEFT LEG BY RN.
--- NOTE | 2018-08-14 12:14 | NUR ---
EKG DONE BY RN.
--- NOTE | 2018-08-14 12:16 | NUR ---
PATIENT'S BP WAS 137/101.
--- NOTE | 2018-08-14 12:17 | NUR ---
IV STARTED ON BOTH LEFT AND RIGHT ARM, 20G. BLOOD WAS DRAWN.
--- NOTE | 2018-08-14 12:19 | NUR ---
DR FLYNN TALKING WITH . STATES AGAIN THAT IS FULL CODE.
--- NOTE | 2018-08-14 12:20 | NUR ---
PATIENT WAS BROUGHT IN BY . STATES THAT PATIENT SLEPT IN UNTIL 11 AM AND WHEN SHE WOKE PATIENT WAS CONFUSED SO HE DECIDED TO BRING HER IN. PATIENT NOT RESPONDING TO TALKING BUT IS AWAKE WITH FLAT AFFECT. PATIENT PALE. NO SIGNS OF VOMITING. PATIENT SATING WELL ON NASAL CANNULA.
--- NOTE | 2018-08-14 12:25 | NUR ---
# 16 FR Foster catheter with use of sterile technique. Immediate return of 30 cc yellow urine noted. Bedside drainage bag placed below level of bladder. Urine sample collected and sent to lab. Pt tolerated procedure well. Patient unable to toilet self.
[2018-08-14] MEDS ORDERED: NACL 0.9% 1,000 ML IV ONE (12:30)
--- NOTE | 2018-08-14 12:30 | NUR ---
Renea gaspar in [facility] - 08/14/18 at 1231 by MALLORY IO PLACED ON LEFT LEG BY
--- NOTE | 2018-08-14 12:30 | NUR ---
Renea gaspar in [facility] - 08/14/18 at 1250 by MALLORY PATIENT GETTING X RAY IN BED.
--- NOTE | 2018-08-14 12:34 | NUR ---
DR FLYNN AT BEDSIDE CHECKING ON PATIENT.
[2018-08-14 12:42] LABS: BASOPHILS % (AUTO) 0.2 % (0.0-2.0); EOSINOPHILS % (AUTO) 0.1 % (0.0-4.0); HEMOGLOBIN 11.9 g/dL (12.0-16.0); LYMPHOCYTES # (AUTO) 0.4 K/uL (1.0-5.5); LYMPHOCYTES % (AUTO) 6.4 % (20.5-51.5); MEAN CORPUSCULAR HEMOGLOBIN 30 pg (27-31); MEAN CORPUSCULAR HGB CONC 34 % (32-36); MEAN CORPUSCULAR VOLUME 88 fL (79.0-98.0); MONOCYTES # (AUTO) 0.1 K/uL (0.0-1.0); MONOCYTES % (AUTO) 1.6 % (1.7-9.3); NEUTROPHILS # (AUTO) 5.6 K/uL (1.8-7.7); PLATELET COUNT (AUTO) 111 K/uL (130-430); RED BLOOD CELL COUNT(AUTO) 3.97 MIL/uL (4.2-6.2); RED CELL DISTRIBUTION WIDTH 17.8 % (9.0-15.0); WHITE BLOOD COUNT (AUTO) 6.1 K/uL (4.8-10.8)
--- NOTE | 2018-08-14 12:42 | NUR ---
XRAYS BEING DONE AT BEDSIDE.
[2018-08-14 13:01] LABS: ALBUMIN 2.1 g/dL (3.4-4.8); CALCIUM 8.1 mg/dL (8.4-11.0); CREATININE 0.36 mg/dL (0.55-1.30); POTASSIUM 3.1 mmol/L (3.5-5.1); TOTAL BILIRUBIN 0.7 mg/dL (0.0-1.0)
--- NOTE | 2018-08-14 13:10 | NUR ---
DR FLYNN ORDERED D50. GAVE TO PATIENT BY IV AND FLUSHED. WILL CONTINUE TO MONITIOR PATIENT.
--- NOTE | 2018-08-14 13:13 | NUR ---
PATIENT ASKED IF SHE IS IN ANY PAIN AND PATIENT NODDED NO.
[2018-08-14] MEDS ORDERED: DEXTROSE 50% JECT 50 ML DISP.SYRIN ONE (13:16)
[2018-08-14 13:30] LABS: NEUTROPHILS % (AUTO) 91.7 % (40.0-70.0)
[2018-08-14 13:49] LABS: INR 1.9 (0.8-1.2); PROTHROMBIN TIME 18.8 SECS (9.5-12.5)
--- NOTE | 2018-08-14 14:22 | NUR ---
SPOKE TO ABOUT MED REC. STATED THAT HE DOESNT KNOW AND WILL CALL DR JOSEPH LATER TO CHECK.
[2018-08-14] MEDS ORDERED: IOHEXOL 100 ML IV ONE (15:15)
--- NOTE | 2018-08-14 15:58 | NUR ---
PATIENT HAS TEMP OF 95.4 AFTER WARM BLANKETS GIVEN AND PATIENT COVERED WITH GIRISH AND BEANIE. DR FLYNN AWARE.
--- NOTE | 2018-08-14 16:04 | NUR ---
DR FLYNN AT BEDSIDE TALKING TO PATIENT AND FAMILY.
[2018-08-14] MEDS ORDERED: KCL 20 mEq in D5/0.45NS 1000mL 1,000 ML IV ONE (16:15)
--- NOTE | 2018-08-14 16:59 | NUR ---
PATIENT WANTING WATER. SAID PATIENT CAN ONLY HAVE ICE CHIPS. FAMILY AT BEDSIDE FEEDING HER ICE CHIPS.
--- NOTE | 2018-08-14 18:06 | NUR ---
DR MCNEIL CALLED FOR ORDERS BUT SAID SHE WANTED TO CALL DR RAJAN AND DR WOOD FIRST FOR REST OF HISTORY AND WOULD CALL BACK WITH ORDERS.
--- NOTE | 2018-08-14 18:50 | NUR ---
Patient will be admitted to care of DR. MCNEIL. Admitted to ICU unit. Will go to BED 4. Belongings list completed. Summary report printed. Report will be given at bedside.
--- NOTE | 2018-08-14 19:02 | NUR ---
Transfer to ICU via ACLS protocol. Licensed nurse present. IV present no signs or symptoms of infiltration.
--- NOTE | 2018-08-14 19:10 | NUR ---
ADMISSION Pt admitted from ER via gurney and pt was placed in room ICU 4. Pt connected to in room warehouse associate. VSS w/ SR seen on the monitor. Pt on 2L O2 via NC, tolerating well w/ even and unlabored breathing and O2 sats @ 100%. Pt has a RFA 22g and LFA 22g IV infusing D5 1/2 ns w/ 20 mEq KCL @ 100 cc/hr. Pt also has a R subclavian port-a-cath. Foster cath noted draining urine to gravity. Bed is locked and in lowest position, call light w/in reach, will continue to monitor.
[2018-08-14] MEDS ORDERED: IPRATROPIUM/ALBUTEROL SULFATE 3 ML AMPUL.NEB (DUONEB) INH ONE (19:15)
[2018-08-14] MEDS ORDERED: cefTRIAXone 1 GM in D5W 50 ML IV ONE (19:15)
[2018-08-14] MEDS ORDERED: KCL 20 mEq in 100 mL (PREMIX) 100 ML IV ONE (19:15)
[2018-08-14] MEDS ORDERED: KCL 10 mEq in 50 mL (PREMIX) 50 ML IV ONE (19:15)
[2018-08-14] MEDS: KCL 20 mEq in D5NS 1000 mL 1,000 ML IV SCH (19:43)
--- NOTE | 2018-08-14 20:10 | NUR ---
ROUNDS Dr. Randhawa in to see pt and to speak w/ family. Orders received, will carry out orders.
[2018-08-14] MEDS: DEXAMETHASONE SOD PHOSPHATE 4 MG/ML VIAL IVP SCH ×2 (21:00→21:19)
[2018-08-14] MEDS ORDERED: ACETAMINOPHEN 650 MG SUPP.RECT RC PRN (21:30)
[2018-08-14] MEDS ORDERED: ONDANSETRON HCL 4 MG/2 ML VIAL IVP PRN (21:30)
[2018-08-14] MEDS: PANTOPRAZOLE SODIUM 40 MG/VIAL (PROTONIX) IVP SCH (22:11)
[2018-08-14] MEDS ORDERED: PANTOPRAZOLE SODIUM 40 MG/VIAL (PROTONIX) ONE (22:15)
[2018-08-14] MEDS ORDERED: INSULIN LISPRO SLIDING SCALE 100 UNITS/ML VIAL (humaLOG) SUBCUT PRN (22:30)
[2018-08-14] MEDS ORDERED: MORPHINE 2 MG/ML INJ. SYRINGE IVP PRN ×2 (22:30)
[2018-08-15] VITALS (20 sets, daily range): BP systolic 93–120
--- NOTE | 2018-08-15 00:10 | NUR ---
Pt in bed w/ eyes closed resting comfortably, no signs of acute distress or discomfort noted. Family at bedside. Pt on 2L NC tolerating w/ o2 sats @ 99% and even and unlabored breathing. Will continue to monitor pt.
[2018-08-15] MEDS: IPRATROPIUM/ALBUTEROL SULFATE 3 ML AMPUL.NEB (DUONEB) INH SCH ×3 (01:41→13:23)
--- NOTE | 2018-08-15 02:10 | NUR ---
Pt in bed w/ eyes closed resting comfortably. No acute distress or discomfort noted. Pt repositioned at this time, pt tolerated well, will continue to monitor.
[2018-08-15 02:47] LABS: BILIRUBIN,URINE NEGATIVE (NEGATIVE); CLARITY/URINE CLEAR (CLEAR); COLOR,URINE YELLOW (YELLOW); GLUCOSE,URINE TRACE (NEGATIVE); KETONES,URINE NEGATIVE (NEGATIVE); LEUKOCYTE ESTERASE ,URINE NEGATIVE (NEGATIVE); NITRITE, URINE NEGATIVE (NEGATIVE); PH,URINE 7.5 (5.0-8.0); PROTEIN URINE NEGATIVE (NEGATIVE)
[2018-08-15 02:50] LABS: BLOOD, URINE TRACE (NEGATIVE)
[2018-08-15 02:53] LABS: BACTERIA,URINE FEW /HPF (None Seen); WBC,URINE 0-3 /HPF (0-3)
[2018-08-15] MEDS: KCL 20 mEq in D5NS 1000 mL 1,000 ML IV SCH ×2 (04:33→15:36)
--- NOTE | 2018-08-15 05:00 | NUR ---
Pt in bed w/ eyes closed resting comfortably, no signs of acute distress or discomfort noted. Pt's VSS, w/ SR seen on the monitor. Pt doesn't verbalize any needs at this time. Will continue to monitor.
[2018-08-15 05:40] LABS: HEMOGLOBIN 9.9 g/dL (12.0-16.0); LYMPHOCYTES # (AUTO) 0.3 K/uL (1.0-5.5); MEAN CORPUSCULAR HEMOGLOBIN 30 pg (27-31); MONOCYTES # (AUTO) 0.1 K/uL (0.0-1.0); RED BLOOD CELL COUNT(AUTO) 3.27 MIL/uL (4.2-6.2)
[2018-08-15 05:46] LABS: HEMATOCRIT 28.3 % (36-48); LYMPHOCYTES % (AUTO) 5.1 % (20.5-51.5); MEAN CORPUSCULAR HGB CONC 35 % (32-36); MEAN CORPUSCULAR VOLUME 86 fL (79.0-98.0); MONOCYTES % (AUTO) 1.3 % (1.7-9.3); NEUTROPHILS # (AUTO) 5.7 K/uL (1.8-7.7); NEUTROPHILS % (AUTO) 93.6 % (40.0-70.0); RED CELL DISTRIBUTION WIDTH 17.3 % (9.0-15.0); WHITE BLOOD COUNT (AUTO) 6.1 K/uL (4.8-10.8)
[2018-08-15 06:03] LABS: PLATELET COUNT (AUTO) 67 K/uL (130-430)
[2018-08-15 06:04] LABS: ALBUMIN 1.7 g/dL (3.4-4.8); CREATININE 0.45 mg/dL (0.55-1.30); POTASSIUM 3.5 mmol/L (3.5-5.1); TOTAL BILIRUBIN 0.4 mg/dL (0.0-1.0)
[2018-08-15 06:06] LABS: CALCIUM 6.9 mg/dL (8.4-11.0)
--- NOTE | 2018-08-15 07:20 | NUR ---
Opening Note Received plan of care via SBAR from endorsing nurse Catrachito CORADO. Completed bedside rounds.
--- NOTE | 2018-08-15 07:20 | NUR ---
ENDORSEMENT Report given to MAK Regan using SBAR format and pt care was endorsed. No signs of acute distress or discomfort noted.
--- NOTE | 2018-08-15 08:05 | NUR ---
Called Dr. Sofia fowler exchange requested call back for Critical Value of Calcium 6.9.
--- NOTE | 2018-08-15 08:18 | NUR ---
Received call back from Dr. Black. No new orders.
[2018-08-15] MEDS: DEXAMETHASONE SOD PHOSPHATE 4 MG/ML VIAL IVP SCH ×2 (08:28→22:51)
[2018-08-15] MEDS: PANTOPRAZOLE SODIUM 40 MG/VIAL (PROTONIX) IVP SCH (08:28)
--- NOTE | 2018-08-15 09:59 | NUR ---
Nutrition Update Carlos Scale 14 noted. Pt admitted for respiratory failure. Diet: NPO BMI: 11.3 kg/m2 RD to follow per nutrition care standards.
--- NOTE | 2018-08-15 10:30 | NUR ---
Dr. Black at bedside discussion post care with family. terrazzo worker apprentice also at beside. Dr. Black requested new diet for pt. Mechanical Soft. PT does not eat meat.
--- NOTE | 2018-08-15 11:00 | NUR ---
Received call from Dr. Bustamante from [facility]. He was referred to be the attending for hospice. Awaiting family decision prior to transfer. Addendum: 08/15/18 at [address] Jass White RN Dr. Black also requested for a swallow eval and discharge to hospice.
--- NOTE | 2018-08-15 11:24 | NUR ---
SUDHEER SPENCER. CALLED [facility] LEFT A VOICE MESSAGE DIALED [phone] MCNEIL
--- NOTE | 2018-08-15 11:47 | NUR ---
[facility] GIN CLERK spoke with patient's and daughter, Radha, Dr Black, Jass RN, Nella ENGLISH. Discussed hospice and hospice options. Dr Black had notified [facility]. Nella had discussed [facility]. GIN CLERK discussed options and that other hospice agencies were also available. GIN CLERK had phoned Eugene at [facility], p [phone] f [phone]. They do accept patients with IV fluids, a concern for patient's . [facility] usually only provides in-patient hospice at the very last days of life. Patient's decided to proceed with [facility]. Faxed patient's information to [facility] and asked them to phone patient's daughter, Radha [phone], to schedule the visit. Will remain available.
--- NOTE | 2018-08-15 12:02 | NUR ---
WOUND EVALUATION: Wound Consult received from Dr. Black. Thank you, Dr. Black, for the consult. Patient received in a Boo Bed with an Atmos-Air 9000 mattress, awake, alert, and oriented. Patient is unable to turn in bed independently. Carlos Score is a 14. 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 Recent Labs: WBC 6.1, RBC 3.27, hemoglobin 9.9, hematocrit 28.3, platelets 67, BUN 28, creatinine 0.4 by, GFR 148, glucose 165, calcium 6.9, AST 404, ALT 278, alkaline phosphatase 797, albumin 1.7, PTT 18.8, INR 1.9, d-dimer 2890. Microbiology: MRSA screen results in progress. Intrinsic factors that delay wound healing: Pancreatic-Biliary Metastatic Cancer, severe hypoalbuminemia. Extrinsic factors that delay wound healing: Decreased mobility. Wound Assessment: 1. Coccygeal area: Unstageable pressure ulcer, present on admission. Wound bed has 90% yellow tissue, 10% dull pink tissue. No odor, no drainage. Periwound intact. Wound measures 1.6 cm x 1.5 cm, unable to determine depth. Recommend: Cleanse wound with normal saline. Apply SurePrep to shea-wound. Apply Venelex ointment to wound bed. Cover with foam dressing. Perform wound care daily, and as needed for dressing soiling or dislodgement. 2. Sacral area, superior to wound 1: Area of dark discoloration, possible sDTI, present on admission. No odor, no drainage. Site measures 0.5 cm x 0.6 cm. Recommend: Assess site and cover with foam dressing. Perform site care daily, and as needed for dressing soiling or dislodgement. 4. Right lower abdomen: Abscess, present on admission. Site has 20% black discoloration, 80% dark red coloration. No odor, small dry black drainage on dressing. Periwound intact. Wound measures 2.3 cm x 2.4 cm. Recommend: Cleanse wound with normal saline. Apply SurePrep to shea-wound. Apply Polysporin ointment to wound bed. Cover with foam dressing. Perform wound care daily, and as needed for dressing soiling or dislodgement. 4. Left heel: Purple discoloration, present on admission. Per family, patient has had this for a while. 5. Right heel: Purple discoloration, present on admission. Per family, patient has had this for a while. Recommend: Elevate, offload and float bilateral heels with one pillow lengthwise under each extremity at all times. Also recommend: Encourage and assist patient as needed with repositioning [id number] only every 2 hours with pillow support (place one pillow underneath pelvic area superior to wound and one pillow on lower extremity and pelvis inferior to wound 2 offload coccygeal area (if floating adequately, you should be able to slide your hand underneath the patient's coccygeal area), and off-load pressure areas with pillows for pressure re-distribution. Elevate, offload and float bilateral heels with one pillow lengthwise under each extremity at all times. Perform skin care and monitor skin integrity Q shift. Use moisture barrier cream on buttocks and other moisture susceptible areas QID and as needed for soiling. Place patient on a low air-loss mattress.
[2018-08-15] MEDS ORDERED: BALSAM PERU/CASTOR OIL 60 GM OINT...G. TP ONE (12:15)
[2018-08-15] MEDS ORDERED: BACITRACIN/POLYMYXIN B SULFATE 30 GM TOPICAL OINT. TP ONE (12:15)
--- NOTE | 2018-08-15 15:47 | NUR ---
Hospice GREASE CUP FILLER spoke with Franky with Dr Bermeo. She asked which day the patient would be discharged. Spoke with Jass CORADO. They are expecting discharge tomorrow, 08/16/18. The contact for hospice discharge tomorrow is [facility], .
--- NOTE | 2018-08-15 17:00 | NUR ---
Speech therapist at bedside complete swallow eval. Recommended pureed nectar thick diet. Called dietary to provide request to ensure pt receives dinner. PT does not eat meat which was reported to dietary.
--- NOTE | 2018-08-15 17:04 | NUR ---
S.T. SWALLOW EVAL SWALLOW EVAL COMPLETED. PRESENT. PT PRESENTS W/ MOD OROPHARYNGEAL DYSPHAGIA W/ DELAYED BOLUS TRANSFER AND DELAYED SWALLOW. NO S/S FOR PUREE AND NECTAR THICK LIQUIDS. CONTINUED RISK FOR MALNUTRITION AND DEHYDRATION D/T DECREASED TOLERANCE FOR P.O. REC: PUREE DIET W/ NECTAR THICK LIQUIDS. FOLLOW HOSPICE FEEDING PROTOCOL. RESULTS AND RECOMMENDATIONS DISCUSSED IN DETAIL W/ PT AND . THEY VERBALIZED UNDERSTANDING. NURSES ANA AND ANDREEA NOTIFIED. [id number] CL [id number] CL G8998 CL NOMS LEVEL 3
--- NOTE | 2018-08-15 17:45 | NUR ---
Spoke to Dr. Black who advised it was okay to stop acuchecks but record intake.
[2018-08-15] MEDS ORDERED: cefTRIAXone 1 GM VIAL IV SCH (19:00)
[2018-08-15] MEDS ORDERED: cefTRIAXone 1 GM in D5W 50 ML IV SCH (19:00)
--- NOTE | 2018-08-15 20:00 | NUR ---
ASSESSMENT Pt alert/oriented to self, time and place. Oxygen in use 2L/min nasal cannula. Port-a-cath accessed right upper chest,dressing dry and intact. No redness or swelling noted @ site. 2 peripheral sites present on each arm, no redness or swelling noted @ sites. Wounds present abdomen, and sacral area, dressings intact.
[2018-08-16 01:13] VITALS: BP_SYST 97
[2018-08-16] MEDS: KCL 20 mEq in D5NS 1000 mL 1,000 ML IV SCH (02:06)
[2018-08-16] MEDS: IPRATROPIUM/ALBUTEROL SULFATE 3 ML AMPUL.NEB (DUONEB) INH SCH ×2 (07:55→13:53)
[2018-08-16 08:00] VITALS: BP_SYST 96
--- NOTE | 2018-08-16 08:00 | NUR ---
AM ASSESSMENT. PT AWAKENED TO VERBAL STIMULI, SKIN FRAGILE, GENTLY REPOSITIONED IN BED, IV D5NS WITH 20 MEQ KCL AT 100 ML PER HR INFUSING THRU PORT A CATH, ABDOMEN DISTENDED, HYPERACTIVE BOWEL SOUNDS, DRESSING TO ABDOMEN DRY AND CLEAN, AND TO BUTTOCKS, WILL CONTINUE TO MONITOR PATIENT.
[2018-08-16] MEDS: PANTOPRAZOLE SODIUM 40 MG/VIAL (PROTONIX) IVP SCH (08:47)
[2018-08-16] MEDS: DEXAMETHASONE SOD PHOSPHATE 4 MG/ML VIAL IVP SCH (08:47)
[2018-08-16] MEDS ORDERED: BALSAM PERU/CASTOR OIL 60 GM OINT...G. TP SCH (09:00)
[2018-08-16] MEDS ORDERED: BACITRACIN/POLYMYXIN B SULFATE 30 GM TOPICAL OINT. TP SCH (09:00)
[2018-08-16 11:32] VITALS: BP_SYST 123
[2018-08-16] MEDS ORDERED: KCL 20 mEq in D5NS 1000 mL 1,000 ML IV SCH (11:45)
[2018-08-16 14:57] VITALS: BP_SYST 117
--- NOTE | 2018-08-16 15:00 | NUR ---
SKIN CARE. DRESSINGS FROM ABDOMEN AND SACRAL AREA REMOVED, SKIN WASHED GENTLY WITH SALINE, APPLIED TRIPLE ANTIBIOTIC ONTO ABDOMEN, REDDISH RAISED SKIN, COVERED WITH DRESSING. CHANGED DRESSING FROM SACRAL AREA, WITH 70% RED AND 30% PINK WHITE NOTED. SUREPREP TO WOUND EDGES, VENELEX OINTMENT APPLIED THEN COVERED WITH FOAM DRESSING
[2018-08-16 15:27] VITALS: BP_SYST 117
--- NOTE | 2018-08-16 15:46 | NUR ---
DISCHARGE HOME. PT TRANSPORTED VIA AMBULANCE, ACCOMPANIED BY HER COUSIN, ALL PERSONAL BELONGINGS WITH PATIENT, NEW DELIVERY FROM [facility] ([place]HANDED TO PATIENT, DISCHARGE INSTRUCTIONS GIVEN, PT WILL BE UNDER THE CARE OF [facility].
== END 2018-08-16 15:46 | disposition hospice, home (50) | DRG 435 ==
LOC: SED 12:09 → SIC 18:50 → STU 08-15 18:54
PROVIDERS: ADMIT Internal Medicine; ATTEND Internal Medicine
DX: C22.1 Intrahepatic bile duct carcinoma (principal); E43 Unspecified severe protein-calorie malnutrition; J18.9 Pneumonia, unspecified organism; C78.6 Secondary malignant neoplasm of retroperitoneum and peritoneum; R18.8 Other ascites; Z68.1 Body mass index [BMI] 19.9 or less, adult; J91.8 Pleural effusion in other conditions classified elsewhere; E16.2 Hypoglycemia, unspecified; Z51.5 Encounter for palliative care; M19.90 Unspecified osteoarthritis, unspecified site; I10 Essential (primary) hypertension; D63.8 Anemia in other chronic diseases classified elsewhere; E86.0 Dehydration; E87.6 Hypokalemia; R62.7 Adult failure to thrive; R54 Age-related physical debility
CPT/HCPCS: 36415; 36600; 71045; 71275; 80053; 81000-TC; 82803-TC; 82962; 83605; 83735-TC; 83880; 84484; 85025; 85379; 85610-TC; 85730-TC; 87081; 92610-GN; 93005; 94640; 96360; 96361; 99291; C9113; G0378; J0696; J1100; J3480; J7030; J7060; J7620; Q9967